=== PATIENT | male | born 1985 | race American Indian/Alaskan Native ===

== ENCOUNTER 2018-07-22 16:43 | Emergency (ER) | payer SELFPAY ==
--- NOTE | 2018-07-22 19:32 | Emergency Department Report ---
ED ENT HPI - General Chief complaint: Dental/Oral Stated complaint: TOOTH PAIN Time Seen by Provider: 07/22/18 18:45 Source: patient Mode of arrival: Ambulatory Limitations: No Limitations - History of Present Illness Initial comments: 32-year-old -[place] male comes in for right lower molar pain that started on Sunday. Patient reports he did happen to take some leftover antibiotics about 3-4 weeks ago. Patient comes in with right ear pain and right lower jaw pain. Patient reports has a past medical history of a kidney stone back in May 2018. He has no known drug allergies and currently takes no medications on a daily basis. MD complaint: tooth pain, ear pain (right) -: week(s) (4) Location: R ear, tooth # (30) Severity scale (0 -10): 5 Quality: aching, sharp Improves with: none Associated Symptoms: gum swelling. denies: fever, cough, pain with swallowing, sore throat - Related Data Previous Rx's Medication Instructions Recorded Last Taken Type Amoxicillin [Amoxicillin TAB] 875 mg PO BID #20 tablet 07/22/18 Unknown Rx Ibuprofen [Motrin 800 MG tab] 800 mg PO Q8HR PRN #15 tablet 07/22/18 Unknown Rx Allergies Allergy/AdvReac Type Severity Reaction Status Date / Time No Known Allergies Allergy Unverified 07/22/18 16:51 ED Dental HPI - General Chief complaint: Dental/Oral Stated complaint: TOOTH PAIN Time Seen by Provider: 07/22/18 18:45 Source: patient Mode of arrival: Ambulatory Limitations: No Limitations - Related Data Previous Rx's Medication Instructions Recorded Last Taken Type Amoxicillin [Amoxicillin TAB] 875 mg PO BID #20 tablet 07/22/18 Unknown Rx Ibuprofen [Motrin 800 MG tab] 800 mg PO Q8HR PRN #15 tablet 07/22/18 Unknown Rx Allergies Allergy/AdvReac Type Severity Reaction Status Date / Time No Known Allergies Allergy Unverified 07/22/18 16:51 ED Review of Systems ROS: Stated complaint: TOOTH PAIN Other details as noted in HPI Comment: All other systems reviewed and negative ENT: ear pain (right), dental pain ED Past Medical Hx - Past Medical History Previous Medical History?: No - Surgical History Past Surgical History?: No - Social History Smoking Status: Never Smoker Substance Use Type: None - Medications Home Medications: Home Medications Medication Instructions Recorded Confirmed Last Taken Type Amoxicillin [Amoxicillin TAB] 875 mg PO BID #20 tablet 07/22/18 Unknown Rx Ibuprofen [Motrin 800 MG tab] 800 mg PO Q8HR PRN #15 tablet 07/22/18 Unknown Rx ED Physical Exam - General Limitations: No Limitations General appearance: alert, in no apparent distress - Head Head exam: Present: atraumatic, normocephalic - Eye Eye exam: Present: EOMI - ENT ENT exam: Present: mucous membranes moist, TM's normal bilaterally - Expanded ENT Exam Expanded Teeth exam: Present: dental tenderness # (30), gingival enlargement - Neck Neck exam: Present: normal inspection, full ROM. Absent: lymphadenopathy ED Course Vital Signs 07/22/18 07/22/18 16:51 21:00 Temperature 98.8 F 98.6 F Pulse Rate 68 78 Respiratory 16 20 Rate Blood Pressure 154/95 Blood Pressure 142/89 [Left] O2 Sat by Pulse 100 99 Oximetry ED Medical Decision Making - Medical Decision Making Patient has been evaluated by this provider in fast track. Ibuprofen given for pain management. I will place him on amoxicillin and ibuprofen and he needs to follow-up with the dentist. Patient verbalized understanding Critical care attestation.: If time is entered above; I have spent that time in minutes in the direct care of this critically ill patient, excluding procedure time. ED Disposition Clinical Impression: Pain, dental Disposition: [id number] TO HOME OR SELFCARE Is pt being admited?: No Does the pt Need Aspirin: No Condition: Stable Instructions: Dental Abscess (ED) Additional Instructions: Please complete antibiotics as prescribed. It is imperative that she follow up with the dentist. Prescriptions: Amoxicillin [Amoxicillin TAB] 875 mg PO BID #20 tablet Ibuprofen [Motrin 800 MG tab] 800 mg PO Q8HR PRN #15 tablet PRN Reason: Pain , Severe (7-10) Referrals: [facility] [Provider Group] - 3-5 Days [facility] [Outside] - 3-5 Days [facility] [Outside] - 3-5 Days [facility] [Outside] - 3-5 Days Forms: Work/School Release Form(ED)
[2018-07-22] MEDS ORDERED: MOTRIN PO ONE (19:33)
[2018-07-22 22:02] VITALS: BP 142/89
== END 2018-07-22 21:00 | disposition home or self-care (01) ==
LOC: ED 16:43
DX: K08.89 Other specified disorders of teeth and supporting structures (principal); H92.01 Otalgia, right ear
CPT/HCPCS: 99282